=== PATIENT | male | born 1955 | race Caucasian/White ===

== ENCOUNTER 2016-05-20 05:49 | Inpatient (IN) | payer MEDICARE, OTHER ==
--- NOTE | ~2016-05-20 | DS ---
Discharge Summary [facility] [address] [place]. [address] NAME: FAVIO WU : 57 STATUS : DIS IN PAT#: [id number] AGE: 60 ADM/REG DATE : 05/20/16 MR#: [id number] REPORT SERV DATE: 06/02/16 DICTATED BY: KJ MENDOZA DATE: 06/02/16 REPORT STATUS : Draft TRANSCRIBED BY: KIZZY DATE: 06/02/16 Data Collection from hospitalization DISCHARGE DIAGNOSES: 1. Severe bilateral knee degenerative joint disease. 2. Diabetes. 3. Hypertension. 4. End-stage renal disease, on hemodialysis. 5. Gastroesophageal reflux disease. 6. Anemia. 7. History of tobacco abuse. 8. History of cerebrovascular accident. 9. Obstructive sleep apnea. 10.Hepatitis C. CONSULTATIONS: Dr. Enrique Costa. PROCEDURES PERFORMED: Bilateral posterior stabilized total knee replacement, cemented, 05/20/2016. PATHOLOGY: Bone and soft tissue, right knee arthroplasty - degenerative joint disease with papillary synovial hyperplasia. No infection or neoplasm. Bone and soft tissue, left knee arthroplasty - degenerative joint disease with eburnation. No infection or neoplasm. DISCHARGE MEDICATIONS: Coreg 25 mg twice a day, vitamin B12 1000 mcg daily, Colace 100 mg twice a day, ferrous sulfate 300 mg with breakfast and supper, Neurontin two tablets at bedtime, NovoLog injection insulin as instructed, Prinivil 40 mg twice a day, Zyrtec 10 mg daily, Theragran tablets one tablet with breakfast, Prilosec 20 mg every morning, Demadex 100 mg daily, Flomax 0.4 mg at 6 p.m., Coumadin as instructed, Apresoline 100 mg twice a day, Roxicodone 10 mg four times a day as needed, OxyContin 20 mg every 12 hours, Mylanta 30 mL as needed, Dulcolax 15 mg as needed, milk of magnesia 30 mL as needed, Zofran 4 mg every four hours as needed, Percocet 5/325 two tablets every four hours as needed, MiraLAX powder one packet twice a day as needed, Ambien 5 mg at bedtime as needed, Levemir 20 units subcutaneously every morning and every evening as instructed. CONDITION AT DISCHARGE: Stable. DISPOSITION: The patient was discharged to [facility] on an 1800-calorie diabetic diet with activities as instructed. He would follow up with me two weeks following discharge. HOSPITAL COURSE: This is a 60-year-old man who has bilateral knee pain. The pain has been going on since the 80s, it was daily and was getting worse. The left hurt more than the right. It was throughout the knee and hurt in the medial aspect. It was constant in the left and was moderate to severe on average. The right knee hurts daily, kind of off and on, and was more moderate. It was worse with activity and limits how far he could walk. He was felt to have severe bilateral knee degenerative joint disease. Treatment options were discussed and it was elected to proceed with surgical intervention. He was admitted to the Discharge Summary [address] [address] NAME: FAVIO WU : 57 STATUS : DIS IN [facility]#: [id number] AGE: 60 ADM/REG DATE : 05/20/16 MR#: [id number] REPORT SERV DATE: 06/02/16 DICTATED BY: KJ MENDOZA DATE: 06/02/16 REPORT STATUS : Draft TRANSCRIBED BY: KIZZY DATE: 06/02/16 hospital at this time for further evaluation and treatment. Upon admission, he was taken to the operating room where he underwent the above-mentioned procedure. He tolerated this well. There were no complications. Postoperatively, he was seen by Dr. Enrique Costa. The patient undergoes outpatient hemodialysis on Mondays, Wednesdays, and Fridays. IV fluids were stopped. Sliding scale insulin was provided. Supportive care continued. On postop day #1, he was evaluated by Occupational and Physical Therapy. He was up sitting in a chair. He looked good. His lungs were clear bilaterally. Sliding scale insulin was increased to level 2. MARIUSZ hose remained in place. Blood pressure was controlled. Hemodialysis therapy was performed. INR level was 1.6. He was transfused two units during dialysis. On 05/23/2016, he had no new complaints. Creatinine level was 8.21. He has no focal deficits. He has no edema. He continued to do well. He said he was sleeping well at night. Discharge planning was performed. On 05/25/2016, he was doing well and wanted to go to rehab. Levemir was increased. Discharge instructions were given. Due to his improved and stable condition, he was discharged to [facility] with the above-stated instructions. Information collected by: Danitza Carr I submit the above information as my discharge summary. MARÍA/KIZZY Lilia Mendoza M.D. / [id number] CC: Beau Joaquin M.D. Nathan Chamberlain, M.D. [facility]
--- NOTE | ~2016-05-20 | OP ---
Record Of Operation [facility] [address] [place]. [address] NAME: FAVIO WU : 57 STATUS : ADM IN PAT#: [id number] AGE: 60 ADM/REG DATE : 05/20/16 MR#: [id number] REPORT SERV DATE: 05/21/16 DICTATED BY: KJ MENDOZA DATE: 05/20/16 REPORT STATUS : Draft TRANSCRIBED BY: MODL DATE: 05/20/16 DATE OF PROCEDURE: 05/20/2016 PREOPERATIVE DIAGNOSIS: Severe bilateral knee degenerative joint disease. POSTOPERATIVE DIAGNOSIS: Severe bilateral knee degenerative joint disease. OPERATION: Bilateral posterior stabilized total knee replacement, cemented. SIDE: Right and left. SIZE: See chart. ANESTHESIA: See chart. ESTIMATED BLOOD LOSS: About 10 mL each knee. TOURNIQUET TIME: Approximately 1 hour and 10 minutes. COMPLICATIONS: None. SPECIMENS: Articular surfaces. PROCEDURE: The patient was appropriately identified and marked. The operative side agreed with the consent form and it was checked by all members of the surgical team. The patient was taken to the operating room and anesthesia was induced per the anesthesiologist. The patient was carefully transferred to the operating table without incident. The patient received appropriate prophylactic antibiotics and a Jacinto catheter was placed in the standard sterile technique. The patient was then carefully positioned, padded, prepped and draped in the normal sterile fashion. The operative leg had been appropriately identified and checked by all members of the operating team against the consent form and found to be the correct limb. The patient's lower extremity was then exsanguinated with an Kevin wrap and a tourniquet was inflated to 350 mmHg. Sharp dissection was carried out through a straight midline longitudinal incision and electrocautery through the fat. Sharp quad splitting approach was carried out between about the medial 10 percent of the tendon and the lateral 90 percent of the tendon and down around the medial aspect of the patella and then 1 cm medial to the tibial tubercle. The patella was carefully everted and the posterior fat pad was excised and gentle MCL elevation was carried out off the proximal medial tibia subperiosteally. IM guide was placed in the distal femur after using the appropriate drill. The distal femoral cutting guide was held with 2 pins and the distal cut made. Meniscal fragments and the ACL and the PCL were excised with electrocautery, carefully staying anterior to the posterior fat pad. The proximal tibial alignment guide was set appropriately and the proximal tibial cut made. Spacer block verified full extension with excellent mediolateral balance. Sizing guide was used to place 2 drill holes in the distal femur and the four-in-one cutting block was then placed, impacted and checked Record Of Operation [facility] [address] [place]. [address] NAME: FAVIO WU : 57 STATUS : ADM IN PAT#: [id number] AGE: 60 ADM/REG DATE : 05/20/16 MR#: [id number] REPORT SERV DATE: 05/21/16 DICTATED BY: KJ MENDOZA DATE: 05/20/16 REPORT STATUS : Draft TRANSCRIBED BY: MODL DATE: 05/20/16 to be sure it would not notch with an david wing and it was held with 2 pins. The anterior cut, posterior cut, anterior chamfer and posterior chamfer cuts were made. The pins were removed and the block was removed. A posterior release was carried out with a curved 3/4 inch osteotome staying right on the bone posteriorly. The box-cut guide was then placed, impacted and held with 2 pins and a reciprocating saw was used to cut out the box. With the trial components in place, there was excellent medial/lateral balance. The patella was then measured with a caliper, cut first with an oscillating saw and then reamed with a patella reamer. With the trial patella in place, there was excellent patellar tracking. Rotation was marked on the tibia and the tibia prepared with a drill and stamp chisel. All surfaces were then copiously irrigated with pulsatile lavage, carefully dried and then vacuum-mixed cement was pressurized with a cement gun in a doughy phase. The tibial component was placed, impacted and excess cement was removed. The cement was then pressurized in the femur and placed on the posterior runners of the femoral component, which was placed, impacted and excess cement removed and the knee was brought out into extension on a trial spacer. The cement was then pressurized in the patella. Patellar component was then placed, clamped and excess cement was removed. Once all cement was hardened, the knee was taken through range of motion. Further extruded cement was removed with a small osteotome. Then based on the trial inserts, we decided on the actual insert, which was placed in the standard fashion and held with a locking mechanism. The knee was then copiously irrigated and then closed in a layered fashion over a medium Hemovac drain superolaterally with interrupted #1 in the deep fascia, 2-0 subcutaneous and sera in the skin. The wounds were dressed sterilely and the tourniquet was deflated. After completion of the first knee and discussion with the anesthesiologist, all parameters were acceptable and we decided to proceed with the second knee. Same procedure as that dictated above was carried out on the contralateral knee. The contralateral leg was again appropriately identified and checked by all members of the operating team against the consent form and found to be the correct limb. The patient's lower extremity was then exsanguinated with an Kevin wrap and a tourniquet was inflated to 350 mmHg. Sharp dissection was carried out through a straight midline longitudinal incision and electrocautery through the fat. Sharp quad splitting approach was carried out between about the medial 10 percent of the tendon and the lateral 90 percent of the tendon and down around the medial aspect of the patella and then 1 cm medial to the tibial tubercle. The patella was carefully everted and the posterior fat pad was excised and gentle MCL elevation was carried out off the proximal medial tibia subperiosteally. IM guide was placed in the distal femur after using the appropriate drill. The distal femoral cutting guide was held with 2 pins and the distal cut made. Meniscal fragments and the ACL and the PCL were excised with electrocautery, carefully staying anterior to the posterior fat pad. The proximal tibial alignment guide was set appropriately and the proximal tibial cut made. Spacer block verified full extension with excellent mediolateral balance. Sizing guide was used to place 2 drill holes in the distal femur and the four-in-one cutting block was then placed, impacted and checked to be sure it would not notch with an david wing and it was held with 2 pins. The anterior cut, posterior cut, anterior chamfer and posterior chamfer cuts were made. The pins were removed and the block was removed. A posterior release was carried out with a curved 3/4 inch osteotome staying right on the bone posteriorly. The box cut guide was then placed, impacted and held with 2 pins and a reciprocating saw was used to Record Of Operation [address] [place]. [address] NAME: FAVIO WU : 57 STATUS : ADM IN PAT#: [id number] AGE: 60 ADM/REG DATE : 05/20/16 MR#: [id number] REPORT SERV DATE: 05/21/16 DICTATED BY: KJ MENDOZA DATE: 05/20/16 REPORT STATUS : Draft TRANSCRIBED BY: KIZZY DATE: 05/20/16 cut out the box. With the trial components in place, there was excellent medial/lateral balance. The patella was then measured with a caliper, cut first with an oscillating saw and then reamed with a patella reamer. With the trial patella in place, there was excellent patellar tracking. Rotation was marked on the tibia and the tibia prepared with a drill and stamp chisel. All surfaces were then copiously irrigated with pulsatile lavage, carefully dried and then vacuum-mixed cement was pressurized with a cement gun in a doughy phase. The tibial component was placed, impacted and excess cement was removed. The cement was then pressurized in the femur and placed on the posterior runners of the femoral component, which was placed, impacted and excess cement removed and the knee was brought out into extension on a trial spacer. The cement was then pressurized in the patella. Patellar component was then placed, clamped and excess cement was removed. Once all cement was hardened, the knee was taken through range of motion. Further extruded cement was removed with a small osteotome. Then based on the trial inserts, we decided on the actual insert, which was placed in the standard fashion and held with a locking mechanism. The knee was then copiously irrigated and then closed in a layered fashion over a medium Hemovac drain superolaterally with interrupted #1 in the deep fascia, 2-0 subcutaneous and sera in the skin. The wounds were dressed sterilely and the tourniquet was deflated. The patient was then awakened and taken to the postanesthesia care unit without incident. All counts were correct at the end of the case. AXEL/KIZZY Lilia Mendoza M.D. / [id number] CC: Lilia Mendoza M.D.
[~2016-05-20 05:49] MED LIST: AGGRENOX PO; AMB10 PO; APRES10B PO; APRES50 PO; COREG25 PO; CYANO1000T PO; DEMA100 PO; INSNOVR SC; JALYN 0.5-0.41 EACH PO; JAYLN PO; LANTUS FOR SC; LANTUS SC; LISINOPRIL40 MG PO; LOP50 PO; MSCONT60 PO; NEUR600 PO; OXYCOD PO; OXYCON20 PO; PARAFON FORT PO; PRILO PO; ZYRTEC ALLGY10 MG PO; [UNRECOGNIZED DRUG - OTHER]
[2016-05-20 07:32] LABS: BASOPHILS 0.4 %; BASOPHILS ABSOLUTE 0.02 10/3/uL (0.0-0.16); EOSINOPHILS 4.6 %; EOSINOPHILS ABSOLUTE 0.24 10/3/uL (0.0-0.53); HEMATOCRIT 34.6 % (40.0-51.0); HEMOGLOBIN 11.5 g/dL (13.6-17.8); IMMATURE GRANULOCYTES 0.2 %; IMMATURE GRANULOCYTES ABSOLUTE 0.01 10/3/uL (0.0-0.11); LYMPHOCYTES 15.8 %; LYMPHOCYTES ABSOLUTE 0.82 10/3/uL (0.67-4.30); MANUAL DIFF NO %; MEAN CORPUS HGB CONC 33.2 g/dL (32.0-36.0); MEAN CORPUSCULAR HEMOGLOB 30.5 pg (26.0-34.0); MEAN CORPUSCULAR VOLUME 91.8 fL (80-100); MEAN PLATELET VOLUME 9.2 fL (9.2-13.0); MONOCYTES 15.8 %; MONOCYTES ABSOLUTE 0.82 10/3/uL (0.21-1.20); NEUTROPHILS 63.2 %; NEUTROPHILS ABSOLUTE 3.28 10/3/uL (2.02-8.40); PLATELET COUNT 143 10/3/uL (150-400); RBC DISTRIBUTION WIDTH 13.8 % (12.0-16.0); RED CELL COUNT 3.77 10/6/uL (4.7-6.1); WHITE BLOOD CELLS 5.2 10/3/uL (4.5-10.5)
[2016-05-20 07:37] LABS: INTERNATIONAL NORMAL RATI 1.2 UNITS (-); PROTIME (NOT ORD) 14.8 SEC (12.0-14.5)
[2016-05-20 08:22] LABS: A/G RATIO 0.9 (0.7-1.9); ALBUMIN 3.6 G/DL (3.5-5.0); ALKALINE PHOSPHATASE 96 U/L (45-117); BUN (BLOOD UREA NITROGEN) 25 MG/DL (6-23); CALCIUM, SERUM 8.1 MG/DL (8.5-10.4); CHLORIDE, SERUM 100 MMOL/L (96-112); CO2 (CARBON DIOXIDE) 22 MMOL/L (24-34); CREATININE 9.39 MG/DL (0.70-1.30); GFR AFRICAN AMERICAN 6 ML/MIN (>=60); GFR NON AFRICAN AMERICAN 5 ML/MIN (>=60); GLOBULIN 3.8 G/DL (2.5-4.1); GLUCOSE, SERUM 170 MG/DL (60-99); POTASSIUM, SERUM 4.8 MMOL/L (3.5-5.3); SGOT(AST) 19 U/L (5-40); SGPT(ALT) 15 U/L (5-65); SODIUM, SERUM 137 MMOL/L (135-148); TOTAL BILIRUBIN 0.4 MG/DL (0-1.2); TOTAL PROTEIN 7.4 G/DL (6.0-8.5)
[2016-05-21 05:14] LABS: INTERNATIONAL NORMAL RATI 1.4 UNITS (-); PROTIME (NOT ORD) 16.9 SEC (12.0-14.5)
[2016-05-21 05:17] LABS: BASOPHILS 0.3 %; BASOPHILS ABSOLUTE 0.02 10/3/uL (0.0-0.16); EOSINOPHILS 0.4 %; EOSINOPHILS ABSOLUTE 0.03 10/3/uL (0.0-0.53); IMMATURE GRANULOCYTES 0.1 %; IMMATURE GRANULOCYTES ABSOLUTE 0.01 10/3/uL (0.0-0.11); MEAN CORPUS HGB CONC 33.1 g/dL (32.0-36.0); MEAN CORPUSCULAR HEMOGLOB 30.5 pg (26.0-34.0); MEAN CORPUSCULAR VOLUME 92.4 fL (80-100); MEAN PLATELET VOLUME 9.2 fL (9.2-13.0); MONOCYTES 13.5 %; NEUTROPHILS 64.7 %; NEUTROPHILS ABSOLUTE 4.32 10/3/uL (2.02-8.40); PLATELET COUNT 140 10/3/uL (150-400); RBC DISTRIBUTION WIDTH 13.9 % (12.0-16.0); WHITE BLOOD CELLS 6.7 10/3/uL (4.5-10.5)
[2016-05-21 05:19] LABS: BUN (BLOOD UREA NITROGEN) 23 MG/DL (6-23); CALCIUM, SERUM 7.4 MG/DL (8.5-10.4); CHLORIDE, SERUM 101 MMOL/L (96-112); GLUCOSE, SERUM 164 MG/DL (60-99); HEMATOCRIT 25.4 % (40.0-51.0); HEMOGLOBIN 8.4 g/dL (13.6-17.8); MANUAL DIFF NO %; PHOSPHORUS, SERUM 3.9 MG/DL (2.5-4.5); POTASSIUM, SERUM 4.8 MMOL/L (3.5-5.3); RED CELL COUNT 2.75 10/6/uL (4.7-6.1); SODIUM, SERUM 139 MMOL/L (135-148)
[2016-05-21 05:20] LABS: ALBUMIN 2.8 G/DL (3.5-5.0); CO2 (CARBON DIOXIDE) 28 MMOL/L (24-34); CREATININE 7.67 MG/DL (0.70-1.30); GFR AFRICAN AMERICAN 8 ML/MIN (>=60); GFR NON AFRICAN AMERICAN 7 ML/MIN (>=60)
[2016-05-22 05:36] LABS: INTERNATIONAL NORMAL RATI 1.6 UNITS (-); PROTIME (NOT ORD) 18.8 SEC (12.0-14.5)
[2016-05-22 05:50] LABS: ALBUMIN 2.7 G/DL (3.5-5.0); BUN (BLOOD UREA NITROGEN) 39 MG/DL (6-23); CALCIUM, SERUM 7.5 MG/DL (8.5-10.4); CHLORIDE, SERUM 99 MMOL/L (96-112); CO2 (CARBON DIOXIDE) 26 MMOL/L (24-34); CREATININE 9.95 MG/DL (0.70-1.30); GFR AFRICAN AMERICAN 6 ML/MIN (>=60); GFR NON AFRICAN AMERICAN 5 ML/MIN (>=60); GLUCOSE, SERUM 56 MG/DL (60-99); PHOSPHORUS, SERUM 3.5 MG/DL (2.5-4.5); POTASSIUM, SERUM 4.6 MMOL/L (3.5-5.3); SODIUM, SERUM 136 MMOL/L (135-148)
[2016-05-22 06:11] LABS: BASOPHILS 0.3 %; BASOPHILS ABSOLUTE 0.02 10/3/uL (0.0-0.16); EOSINOPHILS 2.8 %; EOSINOPHILS ABSOLUTE 0.17 10/3/uL (0.0-0.53); HEMOGLOBIN 7.3 g/dL (13.6-17.8); IMMATURE GRANULOCYTES 0.3 %; IMMATURE GRANULOCYTES ABSOLUTE 0.02 10/3/uL (0.0-0.11); LYMPHOCYTES ABSOLUTE 1.67 10/3/uL (0.67-4.30); MEAN CORPUS HGB CONC 33.5 g/dL (32.0-36.0); MEAN CORPUSCULAR HEMOGLOB 30.4 pg (26.0-34.0); MEAN CORPUSCULAR VOLUME 90.8 fL (80-100); MEAN PLATELET VOLUME 9.3 fL (9.2-13.0); MONOCYTES 18.3 %; MONOCYTES ABSOLUTE 1.13 10/3/uL (0.21-1.20); NEUTROPHILS 51.3 %; NEUTROPHILS ABSOLUTE 3.17 10/3/uL (2.02-8.40); PLATELET COUNT 124 10/3/uL (150-400); RBC DISTRIBUTION WIDTH 13.6 % (12.0-16.0); WHITE BLOOD CELLS 6.2 10/3/uL (4.5-10.5)
[2016-05-22 06:15] LABS: HEMATOCRIT 21.8 % (40.0-51.0); MANUAL DIFF NO %
[2016-05-23 06:02] LABS: INTERNATIONAL NORMAL RATI 2.4 UNITS (-)
[2016-05-23 06:08] LABS: ALBUMIN 2.7 G/DL (3.5-5.0); CALCIUM, SERUM 7.5 MG/DL (8.5-10.4); CHLORIDE, SERUM 99 MMOL/L (96-112); CO2 (CARBON DIOXIDE) 25 MMOL/L (24-34); PHOSPHORUS, SERUM 3.7 MG/DL (2.5-4.5); POTASSIUM, SERUM 4.7 MMOL/L (3.5-5.3); SODIUM, SERUM 134 MMOL/L (135-148)
[2016-05-23 06:09] LABS: BUN (BLOOD UREA NITROGEN) 34 MG/DL (6-23); CREATININE 8.21 MG/DL (0.70-1.30); GFR AFRICAN AMERICAN 7 ML/MIN (>=60); GFR NON AFRICAN AMERICAN 6 ML/MIN (>=60); GLUCOSE, SERUM 125 MG/DL (60-99)
[2016-05-23 06:14] LABS: PROTIME (NOT ORD) 25.8 SEC (12.0-14.5)
[2016-05-23 06:58] LABS: MEAN CORPUS HGB CONC 33.2 g/dL (32.0-36.0); MEAN CORPUSCULAR HEMOGLOB 29.5 pg (26.0-34.0); MEAN PLATELET VOLUME 9.4 fL (9.2-13.0); PLATELET COUNT 112 10/3/uL (150-400); RBC DISTRIBUTION WIDTH 14.8 % (12.0-16.0); WHITE BLOOD CELLS 6.4 10/3/uL (4.5-10.5)
[2016-05-23 07:01] LABS: HEMATOCRIT 27.4 % (40.0-51.0); HEMOGLOBIN 9.1 g/dL (13.6-17.8); MANUAL DIFF YES %; RED CELL COUNT 3.08 10/6/uL (4.7-6.1)
[2016-05-23 08:44] LABS: BAND NEUTROPHILS 7 %; EOSINOPHILS 2 %; EOSINOPHILS ABSOLUTE (CALC) 0.13 10/3/uL (0.0-0.53); LYMPHOCYTES 14 %; MONOCYTES 17 %; MONOCYTES ABSOLUTE (CALC) 1.09 10/3/uL (0.21-1.20); NEUTROPHILS ABSOLUTE (CALC) 4.29 10/3/uL (2.02-8.40); PLATELET ESTIMATE SLT DEC (ADEQUATE); SEGMENTED NEUTROPHIL (0) 60 %; TOTAL NUCLEATED CELLS 100
[2016-05-23 08:45] LABS: RBC MORPHOLOGY NORM (NORMAL)
[2016-05-24 05:21] LABS: PROTIME (NOT ORD) 22.9 SEC (12.0-14.5)
[2016-05-24 05:22] LABS: HEMOGLOBIN 8.8 g/dL (13.6-17.8)
[2016-05-24 05:25] LABS: CALCIUM, SERUM 7.2 MG/DL (8.5-10.4); CHLORIDE, SERUM 97 MMOL/L (96-112); CO2 (CARBON DIOXIDE) 26 MMOL/L (24-34); GFR AFRICAN AMERICAN 6 ML/MIN (>=60); GFR NON AFRICAN AMERICAN 5 ML/MIN (>=60); GLUCOSE, SERUM 147 MG/DL (60-99); POTASSIUM, SERUM 5.3 MMOL/L (3.5-5.3); SODIUM, SERUM 134 MMOL/L (135-148)
[2016-05-24 05:27] LABS: BUN (BLOOD UREA NITROGEN) 48 MG/DL (6-23); CREATININE 9.81 MG/DL (0.70-1.30)
[2016-05-25 04:47] LABS: BASOPHILS 0.5 %; BASOPHILS ABSOLUTE 0.03 10/3/uL (0.0-0.16); EOSINOPHILS 6.8 %; EOSINOPHILS ABSOLUTE 0.42 10/3/uL (0.0-0.53); HEMATOCRIT 25.4 % (40.0-51.0); HEMOGLOBIN 8.6 g/dL (13.6-17.8); IMMATURE GRANULOCYTES 0.5 %; IMMATURE GRANULOCYTES ABSOLUTE 0.03 10/3/uL (0.0-0.11); LYMPHOCYTES 27.6 %; MEAN CORPUS HGB CONC 33.9 g/dL (32.0-36.0); MEAN CORPUSCULAR VOLUME 88.5 fL (80-100); MEAN PLATELET VOLUME 9.2 fL (9.2-13.0); MONOCYTES 11.2 %; MONOCYTES ABSOLUTE 0.69 10/3/uL (0.21-1.20); NEUTROPHILS 53.4 %; RBC DISTRIBUTION WIDTH 14.3 % (12.0-16.0); RED CELL COUNT 2.87 10/6/uL (4.7-6.1); WHITE BLOOD CELLS 6.2 10/3/uL (4.5-10.5)
[2016-05-25 04:50] LABS: MANUAL DIFF NO %; PLATELET COUNT 156 10/3/uL (150-400)
[2016-05-25 05:03] LABS: ALBUMIN 2.6 G/DL (3.5-5.0); CALCIUM, SERUM 7.2 MG/DL (8.5-10.4); CHLORIDE, SERUM 92 MMOL/L (96-112); CO2 (CARBON DIOXIDE) 26 MMOL/L (24-34); GLUCOSE, SERUM 157 MG/DL (60-99); POTASSIUM, SERUM 5.5 MMOL/L (3.5-5.3); SODIUM, SERUM 130 MMOL/L (135-148)
[2016-05-25 05:05] LABS: BUN (BLOOD UREA NITROGEN) 60 MG/DL (6-23); GFR AFRICAN AMERICAN 5 ML/MIN (>=60); GFR NON AFRICAN AMERICAN 4 ML/MIN (>=60); INTERNATIONAL NORMAL RATI 1.9 UNITS (-); PHOSPHORUS, SERUM 5.8 MG/DL (2.5-4.5); PROTIME (NOT ORD) 21.3 SEC (12.0-14.5)
== END 2016-05-25 16:14 | DRG 461 ==
LOC: SDC/OF 05:49 → PACU 11:04 → 3SO 12:44
PROVIDERS: Nurse Practitioner; Nurse Practitioner Acute Care; Specialist
PROC: 0SRC0J9 Replacement of Right Knee Joint with Synthetic Substitute, Cemented, Open Approach (ICD-10-PCS; 2016-05-20)
PROC: 5A1D60Z (ICD-10-PCS; 2016-05-20)
PROC: 0SRD0J9 Replacement of Left Knee Joint with Synthetic Substitute, Cemented, Open Approach (ICD-10-PCS; principal; 2016-05-20 07:45)
PROC: 30233N1 Transfusion of Nonautologous Red Blood Cells into Peripheral Vein, Percutaneous Approach (ICD-10-PCS; 2016-05-22)
DX: M17.0 Bilateral primary osteoarthritis of knee (principal); N18.6 End stage renal disease; I12.0 Hypertensive chronic kidney disease with stage 5 chronic kidney disease or end stage renal disease; E11.22 Type 2 diabetes mellitus with diabetic chronic kidney disease; D62 Acute posthemorrhagic anemia; E11.65 Type 2 diabetes mellitus with hyperglycemia; Z99.2 Dependence on renal dialysis; K21.9 Gastro-esophageal reflux disease without esophagitis; G62.9 Polyneuropathy, unspecified
CPT/HCPCS: 36415; 80048; 80053; 80069; 81001; 82962; 85014; 85018; 85025; 85610; 86850; 86900; 86901; 86920; 87040; 87641; 88305; 88311; 93005; 97110-GP; 97116-GP; 97161-GP; 97166-GO; 97530-GP; A9270-GY; C1776; G0257; G8978-CK-GP; G8979-CK-GP; G8980-CK-GP; J0690; J0885; J1170; J1885; J2250; J2270; J2274; J2405; J2795; J3010; P9016